=== PATIENT | female | born 1935 | race Native Hawaiian/Other Pacific Islander ===

== ENCOUNTER 2016-09-07 13:14 | Outpatient (CLI) | payer OTHER ==
[~2016-09-07 13:14] MED LIST: ALEN70TA19 PO; CLARITIN10 MG PO; DONE10TA4 PO; FLUTICASONE50 MCG; HYDR-2748 PO; HYDR10TA47 PO; HYZAAR1 TA1 PO; ISOS60TA6 PO; JANTOVEN2 MG PO; METO50TA27 PO; NAMENDA10 MG PO; OMEP40CA PO; SIMV40TA57; SIMV40TA57 PO; WARFARIN3 MG PO; ZESTRIL40 MG PO
[2016-09-07 13:40] LABS: PLATELET COUNT 176 K/uL (152-353)
[2016-09-07 14:11] LABS: POTASSIUM 4.1 mmol/L (3.6-5.2)
== END 2016-09-07 14:15 | disposition home or self-care (01) ==
LOC: LAB 13:14
PROVIDERS: Family Medicine
DX: I10 Essential (primary) hypertension (principal); G89.4 Chronic pain syndrome; I48.91 Unspecified atrial fibrillation; G30.8 Other Alzheimer's disease; Z79.01 Long term (current) use of anticoagulants; N18.3 Chronic kidney disease, stage 3 (moderate); F01.50 Vascular dementia, unspecified severity, without behavioral disturbance, psychotic disturbance, mood disturbance, and anxiety
CPT/HCPCS: 80053; 80061; 81000; 84439; 84443; 85027